=== PATIENT | male | born 1970 | race Two or more races ===

== ENCOUNTER 2016-08-06 07:55 | Emergency (ER) | payer OTHER ==
[2016-08-06] MEDS ORDERED: TETANUS,DIPHTHERIA TOXOID SYRINGE IM V ONE (08:29)
--- NOTE | 2016-08-06 08:37 | RAD ---
LEFT HAND 3 VIEWS HISTORY: Foreign body in hand, nail gun injury. COMPARISONS: None. TECHNIQUE: Frontal, lateral, and oblique views of the left hand. ALIGNMENT: Grossly unremarkable. FRACTURE: Nondisplaced, mildly comminuted fracture of the fifth metacarpal, with penetrating nail injury. SOFT TISSUES: Thickening of soft tissues of the thenar eminence and adjacent to the fifth metacarpal. RADIOOPAQUE FOREIGN BODY: 8 cm nail traversing the soft tissues of the hand. IMPRESSION: Penetrating nail injury with associated nondisplaced fifth metacarpal fracture. Associated soft tissue swelling.
[2016-08-06] MEDS ORDERED: IBUPROFEN 800 MG TABLET ONE (09:03)
[2016-08-06] MEDS ORDERED: CEPHALEXIN 500 MG CAPSULE ONE (09:03)
--- NOTE | 2016-08-06 09:15 | RAD ---
LEFT HAND 3 VIEWS HISTORY: Follow-up foreign body removal. COMPARISONS: 08/06/2016 at 0818 hours. TECHNIQUE: , Frontal, lateral, and oblique views of the left hand. FRACTURE: There is been interval removal of previously noted nail, with no residual foreign body identified. Redemonstration of osseous defect of the fifth metacarpal with associated comminuted fracture. However overall morphology of the fifth metacarpals preserved. No new displaced acute fracture. SOFT TISSUES: Residual soft tissue swelling. IMPRESSION: Interval removal of previously noted nail, with residual osseous defect and comminuted fracture of the fifth metacarpal. No residual radiopaque foreign body.
== END 2016-08-06 09:35 | disposition home or self-care (01) ==
LOC: ED 07:55
DX: S61.247A Puncture wound with foreign body of left little finger without damage to nail, initial encounter (principal); S62.307A Unspecified fracture of fifth metacarpal bone, left hand, initial encounter for closed fracture; W29.4XXA Contact with nail gun, initial encounter; Y92.69 Other specified industrial and construction area as the place of occurrence of the external cause; Y99.0 Civilian activity done for income or pay
CPT/HCPCS: 90714; 73130 ×2; 90471; 99283 ×2; 29125; A9270 ×2